=== PATIENT | male | born 1995 ===

== ENCOUNTER 2018-07-29 14:04 | Emergency (ER) | payer OTHER, SELFPAY ==
[~2018-07-29] VITALS: Ht 170.2 cm; Wt 74.1 kg
[2018-07-29 14:06] VITALS: BP 150/77
== END 2018-07-29 17:43 | disposition left against medical advice (07) ==
LOC: M ED 14:04
DX: M79.643 Pain in unspecified hand (principal); Z53.21 Procedure and treatment not carried out due to patient leaving prior to being seen by health care provider